=== PATIENT | male | born 1945 | race Caucasian/White ===

== ENCOUNTER 2020-03-01 18:22 | Emergency (ER) | payer MEDICARE, OTHER, SELFPAY ==
[2020-03-01] VITALS (7 sets, daily range): BP systolic 98–128; BP diastolic 49–84; PULSE 70–114; RESP 16–28; TEMP 36.4–36.7; O2SAT 89–99; BMI 24.0
--- NOTE | 2020-03-01 18:41 | EKG12_ITS ---
Test Reason : GEN ILL Blood Pressure : / mmHG Vent. Rate : 107 BPM Atrial Rate : 107 BPM P-R Int : 162 ms QRS Dur : 106 ms QT Int : 318 ms P-R-T Axes : 081 -50 102 degrees QTc Int : 424 ms Sinus tachycardia Possible Pulmonary disease pattern Left anterior fascicular block ST & T wave abnormality, consider lateral ischemia Abnormal ECG Confirmed by SULY AMOR, YOVANNY ([id number]), staff editor MICHAEL DESAI ([id number]) on 03/07/2020 9:21:51 AM Referred By: YUSEF Confirmed By:YOVANNY TUBBS MD
--- NOTE | 2020-03-01 18:43 | ED.VIS.GEN ---
History of Present Illness Chief Complaint: General Illness Informant: Patient, Family Narrative: Patient is a 74-year-old male who presents to the emergency department for suspected dehydration with nausea and vomiting. Patient underwent an esophagus resection on February 03. During his hospital stay at the [facility] he ended up having a blood clot in his bowels leading to a partial colon resection on February 06. He currently has a colostomy. Patient was discharged but ended up having to go back to the hospital for shortness of breath, weakness and nausea vomiting. He spent another 7 days after the initial hospital stay. He had multiple coronavirus test which were negative. He had a full body scan to evaluate for any other blood clot. He did not ever have any pulmonary embolism. No history of heart attacks. He is not currently on any anticoagulation besides an aspirin. He denies any worsening abdominal pain with any of this. He has been vomiting over the past 2 days. Initially had a few episodes yesterday but now vomiting after everything he eats. He is currently on amoxicillin for a suspected infection around his incision site. This has been healing well otherwise. He states he has not been able to keep the antibiotic down because he vomits every time he takes it. He denies any fevers or chills. No chest pain. Shortness of breath is at its recent baseline. No leg swelling or calf pain. No radiation of any pain into his back. He did previously have a PICC line but this has subsequently been removed. He has been feeling very weak and has not been able to stand due to the generalized weakness today. The family states he has lost 9 pounds over the past week. Past Medical History - Allergies and Home Meds Allergies/Adverse Reactions: Allergies No Known Allergies Allergy (Verified 03/01/20 18:24) Primary Care Physician: Kirsty Doctor,Out of [NON-STAFF] - Past Medical History: - - Esophagus cancer status post resection, history of mesenteric blood clot Surgical History: - - Esophagectomy, partial colectomy with current stoma Review of Systems All systems negative except as indicated General: Reports: Malaise, Weight loss. Denies: Chills, Fever Eyes: Denies: Visual changes - bilaterally ENT: Denies: Bilateral ear pain Cardiovascular: Denies: Chest pain, Palpitations, Heart racing Respiratory: Reports: Dyspnea. Denies: Cough Gastrointestinal: Reports: Nausea, Vomiting. Denies: Abdominal pain, Melena, Hematochezia Genitourinary: Denies: Dysuria Musculoskeletal: Denies: Myalgias, Neck pain, Back pain Skin: Denies: Rash Neurological: Reports: Weakness - Generalized. Denies: Headache Physical Exam Vital Signs/Narrative: Vital Signs Temp Pulse Resp BP Pulse Ox 03/01/20 18:24 97.8 F 114 H 28 H 128/61 H 91 Inital Vital Signs reviewed: Yes General: Well nourished, Well developed, No Acute Distress, - - Patient had a few episodes of vomiting throughout exam Head: Normocephalic, Atraumatic Eyes: Perrl, EOMI ENT: Dry mucous membranes Neck: Supple, Nontender Cardiovascular: Regular rhythm, No murmurs, Tachycardia Respiratory: No distress, CTA bilaterally Abdomen: Soft, Nontender, Nondistended, - - Midline incision is clean, dry and intact. Colostomy does have output which does not appear bloody or melanotic. Back: Nontender, Normal Inspection Extremities: Nontender, No edema. Negative for: Edema, Calf Tenderness Skin: Normal color, No rash Neurological: Alert, Oriented x3, Normal Strength, Normal Sensation Psychological: Normal affect, Normal Mood Diagnostic/Tx/Re-eval - EKG Initial EKG Interpretation: - - Rate of 107 bpm in sinus tachycardia. Normal intervals. Has left axis deviation. No ST elevations or depressions appreciated. There are T wave inversions in lead I/aVL. Otherwise no other T wave abnormalities. No prior EKG for comparison. - Medical Decision Making Patient presents the emerge department for suspected dehydration secondary to vomiting. He has been having multiple episodes over the past 2 days. Had recent esophagectomy as well as colectomy. He is tachycardic upon arrival. Mildly tachypneic. He has already been worked up for his shortness of breath and had repeat coronavirus test negative as well as CT angios. Patient does very dry on physical exam. Will start lactated Ringer's bolus. Lab work being obtained. Patient's lactic acid within normal limits. He does have elevation of his white blood cell count to nearly 24. He is less white blood cell count was 14 drawn about a week ago. The family states that this is why he was on outpatient antibiotics as his white blood cell count kept elevating. He had had repeat CT scans because of this. Because he has not been taking his antibiotic due to the vomiting will give him a dose of Zosyn here. His creatinine is slightly elevated and he does appear dehydrated with a low sodium. Potassium mildly elevated. Patient is feeling much better on reexamination after IV fluids and Zofran. CT scan showed multilobar pneumonia. Since patient had a recent hospital stay. We will treat this as healthcare associated pneumonia. We will add vancomycin and azithromycin to the Zosyn. On the CT scan of the abdomen/pelvis there was concern for probable splenic infarct. We will start him on heparin. Since the patient has had his recent operations with the [facility] I did arrange transfer for him. They were not able to septum tonight and we will plan on taking him tomorrow. This was discussed with the hospitalist who will take him in the meantime. At this time patient signed out to oncoming attending due to end of shift. Patient otherwise has been labile throughout ED stay. He is agreeable to staying in the hospital at this time until transfer is ready. ED Disposition - Plan for ED Patient: Disposition: [facility] - Main Diagnosis: Sepsis, HAP (hospital-acquired pneumonia), Splenic infarct, Dehydration, Nausea and vomiting Referrals: [facility] Doctor,Out of [NON-STAFF] -
--- NOTE | 2020-03-01 18:44 | ED.RN ---
NO OLD EKGS IN MUSE
--- NOTE | 2020-03-01 19:30 | RAD_ITS ---
STUDY: X-RAY CHEST REASON FOR EXAM: Male, 74 years old. dehydration. pt was diagnosed with esophageal ca recently had surgery on esophagus and colon. TECHNIQUE: Single frontal view of the chest. COMPARISON: None. FINDINGS: Right chest wall port. Clips in the left neck. The lungs are clear and expanded. Calcified pleural plaques. Normal size heart. Normal mediastinum and jesse. Normal visualized pulmonary arteries. Normal visualized aortic arch and descending thoracic aorta. Normal visualized thoracic spine. Normal visualized ribs, clavicles, and shoulders. There is no demonstrated abnormality of the visualized soft tissue structures of the upper abdomen. RAD/Chest 1 View (Portable) IMPRESSION: No acute pulmonary findings. Electronically Signed: Jose Rodriguez MD at 19:45 EDT Tel , Service support ,
[2020-03-01] MEDS: Ondansetron 4 MG/2 ML Vial IV (19:55)
[2020-03-01] MEDS: Lactated Ringers 1,000 ML 999 ML IV (19:55)
[2020-03-01 20:03] LABS: Absolute Lymphocyte Count 0.83 X10^3/uL (0.83-4.51); Absolute Neutrophil Count 21.5 X10^3/uL (2.0-7.7); Basophil# 0.03 X10^3/uL; Basophil% 0.1 % (0-1); Eosinophil# 0.17 X10^3/uL; Eosinophils% 0.7 % (0-5); Hematocrit 33.5 % (40-54); Hemoglobin 11.1 g/dL (13.0-16.5); Lymphocyte # 0.83 X10^3/ul (4.0); Lymphocyte % 3.5 % (19-41); Mean Corp Hgb Conc 33.1 g/dL (32-36); Mean Corpuscular Hgb 33.5 pg (27.0-32.0); Mean Corpuscular Volume 101.2 fL (80-94); Mean Platelet Vol. 10.9 fl (6.2-12.0); Monocyte# 1.05 X10^3/uL; Monocyte% 4.4 % (0-10); NRBC Flagged by Analyzer 0 % (0-5); Neutrophil # 21.47 X10^3/uL (2.7-7.7); Neutrophil % 90.6 % (47-70); POSITIVE DIFFERENTIAL YES; Platelet Count 404 K/mm3 (150-450); RBC Distribution Width CV 15.5 % (11.6-14.6); RBC Distribution Width SD 57.1 fl (35.1-43.9); Red Blood Count 3.31 M/mm3 (4.6-6.2); White Blood Count 23.7 K/mm3 (4.4-11.0)
[2020-03-01 20:04] LABS: Differential Indicated SCAN CRITERIA MET
--- NOTE | 2020-03-01 20:06 | CT_ITS ---
STUDY: CT ABDOMEN AND PELVIS WITH CONTRAST REASON FOR EXAM: Male, 74 years old. Dehydration, N/V x 2 days and weakness.? intra-abdominal abscess? Pt had esophageal resection 02/04/20 d/t cancer and then had to have colon resection with colostomy 02/07/20 d/t blood clot in bowel after esophagus surgery. RADIATION DOSAGE (If Supplied By Facility): CTDIvol = ( 12.97 ) mGy, DLP = ( 1197.59 ) mGycm TECHNIQUE: Transaxial images were obtained from the dome of the diaphragm to the symphysis pubis with oral contrast. Oral and amp; IV Gastrografin and amp; 75mL Isovue-300 was administered. Sagittal and coronal images were reconstructed. Individualized dose optimization techniques were used for this CT. COMPARISON: None. FINDINGS: Bibasilar pneumonia. Calcified pleural plaques. The visualized portions of the heart are within normal limits. Normal liver. Normal gallbladder and extrahepatic biliary system. Wedge-shaped low density focus in the medial spleen measuring 21 x 17 mm. This is most likely an acute splenic infarct. Normal pancreas. Normal bilateral adrenal glands. Normal right kidney. 9 mm nonobstructing left renal stone. Gastric pull-through. Right lower quadrant ileostomy/jejunostomy. There are multiple colonic diverticula consistent with diverticulosis. Right lower quadrant colostomy. The appendix is visualized and appears normal. Normal abdominal aorta. Normal inferior vena cava. Normal retroperitoneum. Normal urinary bladder. There are prostatic calcifications. Postoperative changes of the anterior abdominal wall. There are diffuse degenerative changes of the visualized lumbar spine. CT/Abdomen/Pelvis WITH Contrast IMPRESSION: No evidence of acute intestinal pathology or acute obstructive uropathy. Bibasilar pneumonia. Probable acute splenic infarct. Electronically Signed: Joes Rodriguez MD at 21:51 EDT Tel , Service support ,
--- NOTE | 2020-03-01 20:07 | CT_ITS ---
STUDY: CT CHEST WITH CONTRAST REASON FOR EXAM: Male, 74 years old. Dehydration, N/V x 2 days and weakness. Pt had esophageal resection 02/04/20 d/t cancer and then had to have colon resection with colostomy 02/07/20 d/t blood clot in bowel after esophagus surgery. RADIATION DOSAGE (If Supplied By Facility): CTDIvol = ( 12.97 ) mGy, DLP = ( 1197.59 ) mGycm TECHNIQUE: Transaxial imaging was performed following intravenous administration of Oral and amp; IV Gastrografin and amp; 75mL Isovue-300. Oral contrast was given. Individualized dose optimization techniques were used for this CT. COMPARISON: None. FINDINGS: Right chest wall port. Patchy pneumonia in the right upper lobe and left lower lobe with more confluent pneumonia in the right lower lobe. Bibasilar atelectasis. Azygos lobe. Calcified pleural plaques. Normal heart and pericardium. Esophagectomy and gastric pull-through. Normal hilar regions. Normal enhanced pulmonary arteries. Normal aorta arch and descending thoracic aorta. Normal osseous structures. There is no demonstrated abnormality of the visualized upper abdomen. CT/Chest WITH Contrast IMPRESSION: Patchy pneumonia in the right upper lobe and left lower lobe with more confluent pneumonia in the right lower lobe. Electronically Signed: Jose Rodriguez MD at 21:40 EDT Tel , Service support ,
[2020-03-01 20:23] LABS: ALB/GLOB Ratio 0.4 RATIO (0.9-2.4); AST(SGOT) 57 U/L (15-37); Alanine Aminotransfer ALT/SGPT 70 U/L (16-61); Albumin, Serum 2.6 g/dL (3.2-5.0); Alkaline Phosphatase 140 U/L (45-117); Anion Gap 7 (5-15); BUN 47 mg/dL (7-18); BUN/Creat Ratio 24.1 RATIO (10-20); Calcium,Total 9.5 mg/dL (8.5-10.1); Chloride 102 mmol/L (98-107); Creatinine, Serum 1.95 mg/dL (0.70-1.30); EST Glomerular Filtration Rate 36 mL/min (>60); Est Glom Filt Rate - Afr Amer 44 mL/min (>60); Estimated Creatinine Clearance 27.15 ml/min; Glucose 146 mg/dL (74-106); Lactic Acid 1.5 mmol/L (0.4-1.9); Magnesium 2.2 mg/dL (1.6-2.6); Potassium 5.6 mmol/L (3.5-5.1); Protein, Total 9.6 g/dL (6.4-8.2); Sodium Level 130 mmol/L (136-145)
[2020-03-01 20:50] LABS: Anisocytosis 1+; Platelet Estimate ADEQUATE (ADEQ); Red Cell Morphology N CHROM NORMAL (NORM C&C)
--- NOTE | 2020-03-01 22:36 | HP.PCM_ITS ---
History of Present Illness The patient is a 74 year old M [] Past Medical History Allergies No Known Allergies Allergy (Verified 03/01/20 18:24) Home Medications: Ambulatory Orders Medication Instructions Recorded Aspirin [Aspirin, Baby] 81 mg PO DAILY@0800 03/01/20 Metoprolol Tartrate 2.5 mg PO BID 03/01/20 Surgical History: - - Esophagectomy, partial colectomy with current stoma Smoking Status: Former smoker - Physical Exam Vitals/I&O's: Vital Signs Temp Pulse Resp BP Pulse Ox 97.9 F 70 16 107/56 L 93 03/01/20 22:08 03/01/20 22:08 03/01/20 22:08 03/01/20 22:08 03/01/20 22:08 Oxygen Delivery Method Room Air Weight: 61.689 kg Body Mass Index (BMI) 24.0 Intake and Output for Last 24 Hours 02/28/20 02/29/20 03/01/20 23:59 23:59 23:59 Intake Total 1050 / 1050 Balance 1050 / 1050 Laboratory Results 03/01/20 19:47: WBC 23.7 H, RBC 3.31 L, Hgb 11.1 L, Hct 33.5 L, MCV 101.2 H, MCH 33.5 H, MCHC 33.1, RDW Std Deviation 57.1 H, RDW Coeff of Maco 15.5 H, Plt Count 404, MPV 10.9, Immature Gran % (Auto) 0.700, Neut % (Auto) 90.6 H, Lymph % (Auto) 3.5 L, [place] % (Auto) 4.4, Eos % (Auto) 0.7, Baso % (Auto) 0.1, Absolute Neuts (auto) 21.5 H, Absolute Lymphs (auto) 0.83, Nucleated RBC % 0, Differential Comment , Platelet Estimate ADEQUATE, RBC Morphology N CHROM, Anisocytosis 1+ 03/01/20 19:47: Sodium 130 L, Potassium 5.6 H, Chloride 102, Carbon Dioxide 21.0, Anion Gap 7, BUN 47 H, Creatinine 1.95 H, Estim Creat Clear Calc 27.15, Est GFR (MDRD) Af Amer 44 L, Est GFR (MDRD) Non-Af 36 L, BUN/Creatinine Ratio 24.1 H, Glucose 146 H, Calcium 9.5, Magnesium 2.2, Total Bilirubin 0.50, AST 57 H, ALT 70 H, Alkaline Phosphatase 140 H, Troponin I < 0.015, Total Protein 9.6 H , Albumin 2.6 L, Globulin 7.0 H, Albumin/Globulin Ratio 0.4 L 03/01/20 19:47: Lactic Acid 1.5 Current Medications Vancomycin HCl 1,250 mg/ (Sodium Chloride) 275 mls @ 167 mls/hr IV X1 ONE Stop: 03/02/20 00:09 Azithromycin 500 mg/ Dextrose 255 mls @ 250 mls/hr IV X1 ONE Stop: 03/01/20 23:32
--- NOTE | 2020-03-01 23:08 | ED.RN ---
CONTACTED [facility] TO BEGIN THE TRANSFER PROCESS, PER REBEKAH IN THE TRANSFER CENTER, A ROOM ASSIGNMENT MAY BE DELAYED DUE TO A HIGH CENSUS.
[2020-03-01 23:49] LABS: Partial Thromboplast Time 33.1 Seconds (24.1-36.2)
[2020-03-01] MEDS: Heparin Injection (Vial) 5,000 UNIT/ML VIAL 4000 UNIT IV (23:57)
[2020-03-02] MEDS: HEPARIN/D5w 25,000 UNITS 25,000 UNITS/250 ML IV.SOLN. 8 UNITS IV (00:01)
[2020-03-02 00:05] VITALS: BP 106/61; PULSE 79; RESP 19; TEMP 37.1; O2SAT 99
== END 2020-03-02 01:22 | disposition short-term general hospital (02) ==
LOC: ED 19:07
PROVIDERS: Emergency Provider Emergency Medicine; PCP Family Medicine
DX: A41.9 Sepsis, unspecified organism (principal); J18.9 Pneumonia, unspecified organism; Y95 Nosocomial condition; D73.5 Infarction of spleen; E86.0 Dehydration; R11.2 Nausea with vomiting, unspecified; Z93.3 Colostomy status; Z79.82 Long term (current) use of aspirin
CPT/HCPCS: 36591; 71045; 71260; 74177; 80053; 83605; 83735; 84484; 85025; 85730; 87635; 93005; 94799; 96361; 96365; 96367; 96368; 96375; 99284; J7050; J7120; Q9967; A4216; J2405; U0003